=== PATIENT | female | born 1995 | race African-American/Black ===

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

== ENCOUNTER 2017-02-11 09:18 | Emergency (ER) | payer OTHER ==
[2017-02-11 11:00] LABS: ABSOLUTE BASOPHIL COUNT 0 /CUMM (0.0-0.2); ABSOLUTE EOSINOPHIL COUNT 0.2 /CUMM (0.0-0.7); ABSOLUTE GRANULOCYTE CT 10.2 /CUMM (1.4-6.5); ABSOLUTE LYMPH COUNT 0.8 /CUMM (1.2-3.4); ABSOLUTE MONOCYTE COUNT 0.8 /CUMM (0.10-0.60); BASOPHIL % 0.1 % (0.0-2.0); EOSINOPHIL % 1.6 % (0-5); GRANULOCYTE % 84.6 % (42.2-75.2); HEMATOCRIT 32.5 % (37-47); MEAN CORPUSCULAR HGB 29.5 PG (27.0-31.0); MEAN CORPUSCULAR HGB CONC 33.5 G/DL (33.0-37.0); MEAN CORPUSCULAR VOLUME 87.9 FL (81.0-99.0); MEAN PLATELET VOLUME 7.8 FL (7.4-10.4); PLATELET COUNT 405 /CUMM (130-400); RBC DISTRIBUTION WIDTH 15.6 % (11.5-14.5); WHITE BLOOD CELL COUNT 12.1 /CUMM (4.8-10.8)
--- NOTE | 2017-02-11 11:24 | ED GI/GU/ABDOMINAL COMPLAINT ---
History of Present Illness General Chief Complaint: General Adult Stated Complaint: LAUREN SICKLE CELL Source: patient, old records, EMS Exam Limitations: no limitations Vital Signs & Intake/Output Vital Signs & Intake/Output Vital Signs Date Time Temp Pulse Resp B/P B/P Pulse O2 O2 Flow FiO2 Mean Ox Delivery Rate 02/11 1123 97.2 88 16 128/80 98 Room Air 02/11 0920 96.0 85 16 118/78 99 Room Air Allergies Coded Allergies: NO KNOWN ALLERGIES (04/29/16) Triage Note: PT LAUREN FROM HOME WITH SICKLE CELL ATTACK. PT STATES IT WOKE HER UP OUT OF SLEEP THIS MORNING. REPORTS THAT SHE WAS RECENTLY ADMITTED TO THE HOSPITAL LAST WEEK AND D/C MONDAY FOR THE SAME. EMS REPORTS PT WAS VOMITING, ADMINISTERED 4MG ZOFRAN EN ROUTE, PT STATES NAUSEA IS BETTER AT THIS TIME. C/O PAIN TO BODY 04/23. Triage Nurses Notes Reviewed? yes ? n Is pt currently ? No HPI: Ms. Gorman PMH of sickle cell disease since childhood and H/O medical marijuana for her pain since the age of 20 Y/O brought to ED by EMS with CC of nausea, vomiting, pain in abdomen and both legs since last night. According to patient pain in abdomen and legs started gradually last night and it was 7/10 that increased to 9/10, achy, continuous , nonradiating, aggravated by movement and alleviated by lying still in bed on the side bending her legs close to belly. The abdominal pain is generalized. She also reports that she vomited everything she tried to drink, vomitus was brownish in color, nonbloody, and half container in amount. She also reports that she was admited to [facility] last Monday for the same compain and then patient decided to leave against the medical advise on . She also told that she had itching sensation when she was given morphine and dilaudid in [facility] and then she was given Benedryl. (RONALD ORANTES,IGNACIO) Reconcile Medications Diphenhydramine HCl 50 MG CAPSULE 1 CAP PO Q6-PRN PRN ITCHING (Reported) Diphenoxylate HCl/Atropine (Lomotil 2.5-0.025 MG Tablet) 2.5 MG-0.025 MG TABLET 1 TAB PO 4 TIMES/DAY diarrhea twenty...[id number] Hydromorphone HCl 8 MG TABLET 1-3 TAB PO Q3 PRN PAIN (Reported) Hydromorphone HCl (Dilaudid) 4 MG TABLET 1-2 TAB PO 4XDP PRN pain eight...[id number] Ibuprofen 600 MG TABLET 1 TAB PO Q6H PRN PAIN (Reported) With food Ondansetron (Zofran Odt) 4 MG TAB.RAPDIS 1 TAB SL TID PRN nausea Ondansetron HCl 8 MG TABLET 1 TAB PO Q6H PRN N/V (Reported) (SILVER ORANTES,NEERAJ Jimenez) Past History Travel History Traveled to [place] past 21 day No Medical History Blood Transfusion Hx: Yes Type of Reaction: Itching Any Pertinent Medical History? 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 No (IGNACIO CARDENAS MD) Review of Systems Review of Systems Constitutional: Reports: no symptoms. EENTM: Reports: no symptoms. Respiratory: Reports: no symptoms. Cardiovascular: Reports: no symptoms. GI: Reports: abdominal pain, nausea, vomiting. Genitourinary: Reports: no symptoms. Musculoskeletal: Reports: joint pain. Skin: Reports: no symptoms. Neurological/Psychological: Reports: no symptoms. (IGNACIO CARDENAS MD) Review of Systems Hematologic/Endocrine: Reports: no symptoms. Immunologic/Allergic: Reports: no symptoms. All Other Systems: Reviewed and Negative (NEERAJ SHEPPARD MD) Physical Exam Physical Exam General Appearance: mild distress Head: normal appearance Eyes: Bilateral: normal appearance, PERRL, EOMI, normal inspection. Ears, Nose, Throat, Mouth: hearing grossly normal Neck: normal inspection Respiratory: normal breath sounds Cardiovascular: regular rate/rhythm Gastrointestinal: normal bowel sounds Skin: intact, normal color, warm/dry Core Measures ACS in differential dx? No Severe Sepsis Present: No Septic Shock Present: No (IGNACIO CARDENAS MD) Physical Exam Back: normal inspection, normal range of motion, NO CVA TENDERNESS Extremities: normal range of motion Neurologic/Psych: no motor/sensory deficits, awake, alert, oriented x 3, normal gait, normal mood/affect (SILVER ORANTES,NEERAJ Jimenez) Progress Differential Diagnosis: appendicitis, biliary colic, cholecystitis, ectopic , gastritis, ischemic bowel, intrauterine , pancreatitis, peptic ulcer, threatened AB, UTI/pyelo Plan of Care: Orders Procedure Date/time Status Add-on Test (ER Only) 02/11 1120 Active HUMAN BETA HCG SCREEN 02/11 1050 Complete RETICULOCYTE COUNT 02/11 1022 Complete COMPREHENSIVE METABOLIC PANEL 02/11 1022 Complete CBC WITHOUT DIFFERENTIAL 02/11 1022 Complete Current Medications Sig/Justin Start time Last Medication Dose Stop Time Status Admin Hydromorphone HCl 2 MG ONCE PRN 02/11 1200 AC 02/11 (Dilaudid) 02/12 2000 1211 Laboratory Tests 02/11/17 1050: Anion Gap 12, Estimated GFR > 60, BUN/Creatinine Ratio 18.0, Glucose 87, Calcium 9.6, Total Bilirubin 1.6 H, AST 25, ALT 26, Alkaline Phosphatase 61, Total Protein 8.0, Albumin 4.5, Globulin 3.5, Albumin/Globulin Ratio 1.3, Total Beta HCG NEGATIVE, CBC w Diff MAN DIFF ORDERED, RBC 3.70 L, MCV 87.9, MCH 29.5, RDW 15.6 H, MPV 7.8, Gran % 84.6 H, Lymphocytes % 6.9 L, Monocytes % 6.8, Eosinophils % 1.6, Basophils % 0.1, Absolute Granulocytes 10.2 H, Segmented Neutrophils 78 H, Absolute Lymphocytes 0.8 L, Lymphocytes 10 L, Monocytes 10 H, Absolute Monocytes 0.8 H, Eosinophils 2, Absolute Eosinophils 0.2, Absolute Basophils 0, Nucleated RBCs 2 H, Platelet Estimate VERIFIED BY SMEAR, Polychromasia 2+, Poikilocytosis 2+, Anisocytosis 1+, Target Cells 2+, PUBS MCHC 33.5, Retic Count 7.10 H We will give patient IV fluids, IV pain meds and then reevaluate. (RONALD ORANTES,IGNACIO) Initial ED EKG: none Comments: I talked to the patient and she said that she is feeling comfortable although pain is still there but it's less severe and it's close to her base line. I told her that she can come back to ED if she doesn't feel well or the pain comes back and she agreed to it. (RONALD ORANTES,IGNACIO) Departure Departure Disposition: HOME OR SELF CARE Condition: Stable Clinical Impression Primary Impression: Sickle cell crisis Referrals: PATRICK ORANTES,GARTH Johnson (PCP/Family) Additional Instructions: Plenty of fluids, return to ED if symptoms worsen or having common cold or symptoms of infection or if any concers. Departure Forms: Customer Survey General Discharge Information (RONALD ORANTES,IGNACIO) Resident Co-Sign Statement Statement: ED Attending supervision documentation- [X] I saw and evaluated the patient. I have also reviewed all the pertinent lab results and diagnostic results. I agree with the findings and the plan of care as documented in the Resident's documentation. [X] I have reviewed the ED Record and agree with the Resident's documentation. [] Additions or exceptions (if any) to the Resident's note and plan are summarized below: [I personally seen and examined this patient. I read the above note and agree with what has been written. Patient presents with what she states is her usual sickle cell crisis. Pain is crampy and constant. The pain is severe. Pain has decreased after 3 doses of IV pain medication. Patient offered admission to however she wants to go home.] (SILVER ORANTES,NEERAJ Jimenez)
[2017-02-11 14:12] VITALS: BP 129/78
[2017-02-11] MEDS ORDERED: KRISTALOSE20 GM PO (14:12)
== END 2017-02-11 15:18 ==
LOC: ERH 09:18
PROVIDERS: Student in an Organized Health Care Education/Training Program
DX: D57.00 Hb-SS disease with crisis, unspecified (principal)
CPT/HCPCS: 96374; 96375; 96376; J1200

== ENCOUNTER 2017-02-16 21:57 | Inpatient (IN) | payer OTHER ==
[~2017-02-16] VITALS: Ht 162.6 cm; Wt 76.3 kg
[~2017-02-16 21:57] MED LIST changes: +KRISTALOSE20 GM PO
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
--- NOTE | 2017-02-16 22:34 | NUR ---
PT EVALUATED BY KHARI HALL.
--- NOTE | 2017-02-17 00:11 | NUR ---
IV ACCESSED BY ANEUDY BORGES ON LEFT CHEST PORT. IV NS INFUSING ORDERED. LABS SENT BY RN.
[2017-02-17 00:15] LABS: MEAN CORPUSCULAR HGB CONC 33.6 G/DL (33.0-37.0); MEAN CORPUSCULAR VOLUME 86.3 FL (81.0-99.0); PLATELET COUNT 341 /CUMM (130-400); WHITE BLOOD CELL COUNT 13.6 /CUMM (4.8-10.8)
--- NOTE | 2017-02-17 00:55 | NUR ---
PT REQUESTED FOR CHRONIC PAIN 03/23. MEDICATED WITH DILAUDID 4MG AND BENADRYL 50MG PO. PT STATING "ITS NOT GOING TOUCH ME" ADVISED PT TO TAKE WHAT HAS BEEN ORDERED FOR NOW AND WILL RE EVALUATE PAIN. PT IN AGREEMENT.
--- NOTE | 2017-02-17 01:00 | NUR ---
PT STATES "I WANT TO GO HOME, IM UNCOMFORTABLE. OR CAN I GO TO [place] WHERE MY DOCTORS ARE" MD NOTIFIED.
--- NOTE | 2017-02-17 01:20 | NUR ---
DR. DONOVAN AT BEDSIDE SPEAKING WITH THE PT AND FAMILY.
--- NOTE | 2017-02-17 01:32 | NUR ---
PT REQUESTED TO GET THE SPECIAL EFFECTS SPECIALIST VISITING CARD FROM THE [facility]. VALUABLE TAKEN OUT FROM ED SAFE. PT TOOK THE VISITING CARD OUT. VALUABLE BAG RESEALED AND PLACED IN ED SAFE. WITNESSED BY ANEUDY PATEL.
--- NOTE | 2017-02-17 01:52 | NUR ---
DR. SHEPPARD AT BEDSIDE SPEAKING WITH THE PT.
--- NOTE | 2017-02-17 01:55 | NUR ---
PAIN REMAINS UNCHANGED. CONTINUE C/O PAIN 03/23. IV NS FIRST BAG INFUSED. SECOND BAG INFUSING AT THIS TIME.
--- NOTE | 2017-02-17 02:04 | NUR ---
pt medicated with 50 mg benadryl and 2 mg dilaudid iv as ordered
--- NOTE | 2017-02-17 02:44 | NUR ---
PT CHATTING WITH THE SITTER. REPORTS "IM STILL IN PAIN" PAIN DOWN TO 7/10. PT C/O FEELING NAUSEATED. MD INFORMED.
--- NOTE | 2017-02-17 02:55 | NUR ---
HECTOR KULKARNI Nurse Note by: ROYER CABRERA I agree with the DIETARY SERVICES MANAGER findings/evaluation of this patient's condition. Entered by: ROYER CABRERA Date: 02/17/17 Time: 0255
--- NOTE | 2017-02-17 03:57 | NUR ---
SECOND LITER NS INFUSED. PT REPORTS HER PAIN IS NOW 8/10 AFTER 4 MG DILAUDID PO AND [address] SHEPPARD MADE AWARE
--- NOTE | 2017-02-17 04:17 | NUR ---
PT MEDICATED WITH ANOTHER 50 MG BENADRYL IV AND ANOTHER 2 MG DILAUDID IV ORDERED
--- NOTE | 2017-02-17 06:15 | NUR ---
AWOKE PATIENT FROM SOUND SLEEP TO OBTAIN VS. PATIENT REPORTING 6/10 SICKLE CELL PAIN, PATIENT DENIES OTHER COMPLAINTS. AMBULATORY TO AND FROM BATHROOM W/ STABLE GAIT NOTED.
--- NOTE | 2017-02-17 06:34 | NUR ---
PATIENT REPORTING CURRENT PAIN 01/21 D/T SICKLE CELL, PRN ORDER IS Q6H, LAST MEDICATED AT 0054, CANNOT MEDICATE AGAIN UNTIL 0654. INFORMED WAITING.
--- NOTE | 2017-02-17 06:55 | NUR ---
PATIENT DUE FOR PRN DILAUDID, PATIENT NOTED TO BE SLEEPING W/ REGULAR RESPIRATIONS NOTED. SITTER AWARE TO INFORM RN WHEN PATIENT WAKES.
--- NOTE | 2017-02-17 07:22 | NUR ---
PT LAYING ON STRETCHER WITH EYES CLOSED AT THIS TIME, REQUESTING PAIN MEDIACTION, STATES PAIN IS A 8/10 AT THIS TIME. PT MEDICATED WITH PRN ORDER WITH 4MG PO DILAUDID AT THIS TIME. SITTER REMAINS PRESENT AT THIS TIME.
--- NOTE | 2017-02-17 08:04 | NUR ---
PT AWAKE AND ALERT AND CALM AND COPERATIVE AT THIS TIME, PT PROVIDED WITH FOOD TRAY BUT STTAES THAT SHE DOES NOT USUALLY EAT BREAKFAST DAILY AND DOES NOT FEEL LIKE EATING AT THIS TIME.
--- NOTE | 2017-02-17 08:50 | NUR ---
PT AWARE THAT HER GRANDMOTHER CALLED AND THAT SHE WILL BE HERE IN ABOUT 20 MINUTES
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
--- NOTE | 2017-02-17 10:18 | NUR ---
PT ASKING FOR "MORE PAIN MEDS", DR GAO AWARE.
--- NOTE | 2017-02-17 10:22 | NUR ---
CRISIS AT BEDSIDE FOR EVAL
--- NOTE | 2017-02-17 10:30 | NUR ---
PT CRYING IN HALLWAY STATING "I HAVE SICKLE CELL AND IF I DONT GET MEDICATED I AM LEAVING AND GOING TO [place]" EXPLAINED PT SHE RECIEVED 4MG PO DILAUDID THIS AM AND SHE IS NOT DUE FOR MORE MEDICATION UNTIL 1330. TO PATYDE TO SPEAK WITH PT
--- NOTE | 2017-02-17 10:42 | NUR ---
PT MEDICATED WITH DILAIDID AND BENADRYL PER ORDER AT THIS TIME.
--- NOTE | 2017-02-17 12:00 | NUR ---
ASSUMED CARE OF THIS PT. WHEN THIS RN INTRODUCED SELF TO PT, PT REPORTED THAT SHE WAS STILL IN PAIN, NOW 03/23. WILL MAKE DR GAO AWARE. SITTER AT BEDSIDE.
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
--- NOTE | 2017-02-17 12:35 | NUR ---
OFFERRED PT DILAUDID 4MG PO FOR HER PAIN AND PT REFUSED, STATING THAT IT DOESN'T HELP RELIEVE HER PAIN. PT STATES THAT WHEN HER PAIN IS TOO MUCH TO MANAGE AT HOME BY TAKING WITHER 4, 8 OR 12MG DILAUDUD SHE COMES TO THE ER AND FEELS LIKE WE ARE NOT TAKING CARE OF HER PAIN. THIS RN SPOKE WITH DR GAO WHO SAID PT IS TO STAY ON HER PRN REGIMEN AT THIS TIME. SITTER AT BEDSIDE.
--- NOTE | 2017-02-17 14:13 | NUR ---
PT STATED TO CRISIS THAT SHE IS UNABLE TO AMBULATE DUE TO HER PAIN, PT NOTED BY MULTIPLE STAFFMEMBERS AMBULATING BACK AND FORTH TO BATHROOM AND PHONE. PT ALSO AMBULATED DOWN [place] TO ROOM 16 TO HAVE EKG DONE, PT NOTED TO AMBULATE WITH STEADY GAIT . PT SITTING UP ON STRETCHER EATING AND CHATTING WITH HER GRANDMOTHER.
--- NOTE | 2017-02-17 15:01 | NUR ---
PER PT REQUEST, PT ASKED THIS RN TO OBTAIN A WHEELCHAIR FOR PT TO GO TO RESTROOM. THIS RN WHEELED PT TO RESTROOM WITH GRANDMOTHER IN ATTENDANCE. GRANDMOTHER WHEELED PT BACK TO STRETCHER. PT STATES "MY FEET FEEL LIKE I AM WALKING ON PINS AND NEEDLES". PT WINCED IN PAIN WHEN TRANSFERRING TO AND FROM BED/WHEELCHAIR. SITTER AT BEDSIDE.
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
--- NOTE | 2017-02-17 16:08 | NUR ---
PT MEDICATED WITH K-DUR 60MG FOR REPLACEMENT. PT TO MEET WITH ENEDINA CHAVEZ IN CONSULTATION ROOM. THIS RN OBTAINED A WHEELCHAIR FOR PT.
--- NOTE | 2017-02-17 17:00 | NUR ---
PT MEDICATED WITH MS CONTIN 15MG PO PER EMAR FOR PAIN 04/23. SITTER AT BEDSIDE.
--- NOTE | 2017-02-17 17:40 | NUR ---
PER DR GAO, PT REPORTS PAIN IS WORSE THAN SHE ORIGINALLY REPORTED AND PT GIVEN AN ADDITIONAL 15MG MS CONTIN. PT'S GRANDMOTHER AT BEDSIDE. SITTER AT BEDSIDE.
--- NOTE | 2017-02-17 18:04 | NUR ---
CALLED [facility] AND SPOKE WITH NICKI, WHO STATED SHE IS IN THE MIDDLW OF THE LAST ADMISSION AND WOULD CALL WHEN SHE WAS READY TO TAKE PATIENT.
--- NOTE | 2017-02-17 19:05 | NUR ---
CALLED REPORT TO NICKI ON [facility]. TRANSPORT BOOKED FOR 193
--- NOTE | 2017-02-17 19:20 | NUR ---
PT VISITING WITH GRANDMOTHER AND ANOTHER FAMILY MEMBER PRIOR TO TRANSFER DOWN TO [facility] AT 1930. PT CALM AND COOPERATIVE. SITTER AT BEDSIDE.
[2017-02-17 20:03] VITALS: BP 148/89
[2017-02-17] MEDS ORDERED: MORPHINE SULFAT15 M4 PO (22:57)
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
--- NOTE | 2017-02-18 06:56 | NUR ---
PATIENT SLEPT ALL NIGHT, RECIEVED PRN MORPHINE 45MG AT AT 0622.
[2017-02-18 08:17] VITALS: BP 139/82
[2017-02-18 12:12] VITALS: BP 144/73
--- NOTE | 2017-02-18 14:33 | NUR ---
PT IS STABLE WITH BRIGHT, FULL RANGE OF AFFECT. PT IS CURRENTLY IN A WHEEL CHAIR DUE TO PAIN EXACCERBATED BY HER SICKLE CELL CRISIS. PT IS VERY PLEASANT, COMPLIANT AND COOPERATIVE. PT HAS BEEN ATTENDINGR GROUPS ALL AM. PT WENT TO [employer] AND STATED THAT SHE WISHES TO REPAIR THE RELATIONSHIP SHE HAS WITH HER MOTHER AND THAT HER IDEA OF A "LIFE WORTH LIVING" WOULD BE "A LIFE WITHOUT SICKLE CELL". PT IS POSITIVE AND BRIGHT. VS ARE STABLE AND DENIES ANY SI/HI TO THIS MHW.
--- NOTE | 2017-02-18 15:15 | History & Physical ---
General Information and HPI MD Statement: I have seen and personally examined HECTOR KULKARNI and documented this H&P. The patient is a 21 year old F who presented with a patient stated chief complaint of DEPRESSION AND SUICIDAL IDEATION Source of Information: patient, old records Exam Limitations: no limitations History of Present Illness: 21 O/F with pmh of sickle cell disease comes with depression and suicidal ideation. She does complaint of generalised pains controlled on PO pain meds. Patient is denies any chest pain, fever no tachycardia, coperative now, on wheel chair. review of symtpoms negative Allergies/Medications Allergies: Coded Allergies: NO KNOWN ALLERGIES (04/29/16) Home Med list Diphenhydramine HCl 50 MG CAPSULE 1 CAP PO Q6-PRN PRN ITCHING (Reported) Ibuprofen 600 MG TABLET 1 TAB PO Q6H PRN PAIN (Reported) With food Lactulose (Kristalose) 20 GRAM PACKET 1 PACKET PO DAILY NEEDED CONSTIPATION (Reported) REPEAT NEEDEDE Morphine Sulfate 15 MG TABLET 1-3 TAB PO Q3H PRN PAIN (Reported) Ondansetron HCl 8 MG TABLET 1 TAB PO Q6H PRN N/V (Reported) Compliance With Home Meds: FAIR Past History Travel History Traveled to [place] past 21 day No Medical History Neurological: NONE EENT: NONE Cardiovascular: NONE Respiratory: NONE Gastrointestinal: MED INDUCED NAUSEA Hepatic: GALL STONES Renal: NONE Musculoskeletal: CHRONIC SICKLE CELL PAIN "ALL OVER MY BODY" Psychiatric: depression, CLAUSTROPHOBIA Endocrine: NONE Blood Disorders: sickle cell disease Cancer(s): NONE 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 Home Who Do You Live With? grandparents Services at Home: None Primary Language: Upper Sorbian Functional Ability ADLs Independent: dressing, eating, toileting, bathing. Ambulation: independent, cane, walker, non-ambulatory IADLs Independent: shopping, housework, finances, food prep, telephone, transportation , medication admin. Employment History Employment Part-time at [employer] Review of Systems Review of Systems Constitutional: Denies: no symptoms, see HPI. EENTM: Denies: no symptoms, see HPI, blurred vision. Cardiovascular: Denies: no symptoms, see HPI, chest pain. Respiratory: Denies: no symptoms, see HPI, cough, hemoptysis. GI: Denies: no symptoms, see HPI, abdominal pain, bloating. Genitourinary: Denies: no symptoms, see HPI, discharge. Musculoskeletal: Denies: no symptoms, see HPI, back pain. Skin: Denies: no symptoms, see HPI, cysts. Neurological/Psychological: Denies: no symptoms, see HPI, anxiety. Hematologic/Endocrine: Denies: no symptoms, see HPI, bruising. Immunologic/Allergic: Denies: no symptoms, splenectomy. All Other Systems: Reviewed and Negative Exam & Diagnostic Data Last 24 Hrs of Vital Signs/I&O Vital Signs Date Time Temp Pulse Resp B/P B/P Pulse O2 O2 Flow FiO2 Mean Ox Delivery Rate 02/18 1212 102 144/73 02/18 0817 96.8 92 139/82 02/17 2003 97.1 92 148/89 02/17 1801 96.8 102 16 147/92 100 Room Air Intake & Output 02/18 1600 02/18 0800 02/18 0000 Intake Total Output Total Balance Patient 76.26 kg Weight Physical Exam General Appearance Alert, Oriented X3, Cooperative, No Acute Distress Skin No Rashes, No Breakdown HEENT Atraumatic, PERRLA, EOMI Neck Supple, No JVD, No thryomegaly Cardiovascular Regular Rate, Normal S1, Normal S2 Lungs Clear to Auscultation, Normal Air Movement Abdomen Normal Bowel Sounds, Soft, No Tenderness Neurological Exam Findings: Normal Gait, Normal Speech, Strength at 5/5 X4 Ext, Normal Tone, Sensation Intact, Cranial Nerves 3-12 NL Cranial Nerves II through XII: intact Extremities No Clubbing, No Cyanosis Last 24 Hrs of Labs/Aaron: Laboratory Tests 02/18/17 0615: Anion Gap 12 02/17/17 1820: Anion Gap 12, Estimated GFR > 60, BUN/Creatinine Ratio 8.3 Assessment/Plan As Ranked By This Provider Problem List: 1. Sickle cell disease 2. Suicide ideation 3. Chronic pain Miscellaneous Miscellaneous Documentation Attending Case Discussed With: VIC ORANTES,RAMON Primary Care Physician: GARTH NGUYEN MD Patient sees these Specialists none Level of Patient Care: PASTOR Ayers MD Review Statement Attending Statement Attending MD Statement: examined this patient, discuss w/resident/PA/MEDICINE TEACHER, agreed w/resident/PA/MEDICINE TEACHER, discussed with family, reviewed EMR data (avail), discussed with nursing, discussed with case mgmt, reviewed images, amended to note Attending Assessment/Plan: 21 o/f with h/o sickle cell disease comes with depression and suicidal ideations [facility]. Patient pain controlled by PO pain meds, encourage PO intake. follow pysch.
[2017-02-18 15:58] VITALS: BP 125/88
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
--- NOTE | 2017-02-19 06:01 | NUR ---
PT RECEIVED SEVERAL VISITORS. TOWARDS THE END OF VISITATION, PATIENT HAD WHAT SHE DESCRIBED SIGNIFICANT PAIN FROM SICKEL CELL ANEMIA. THE PATIENT WAS GIVEN MORPHINE PRN. DR SUNSHINE, THE HOSPITALIST, WAS CALLED REGARDING THE PATIENT'S STATUS. THE PT SLEPT FOR ONE HOUR, THEN SHE WAS UP AND CRYING REGARDING THE PAIN. PT THEN SPOKE C HER ROOMMATE FROM 0000 TO 0100. SHE SLEPT AFTERWARDS. PT SAYS SHE WOULD LIKE TO DC SO "I CAN GET BETTER TREATMENT FOR THE SICKLE CELL ANEMIA".
--- NOTE | 2017-02-19 12:38 | NUR ---
PT HAS BEEN ISOLATIVE AND IN BED ALL AM. PT JUST REECNTLY REQUESTED THAT SOMEONE "WHEEL ME TO THE BATHROOM BECAUSE IT HURTS TOO MUCH TO WHEEL MYSLEF". PT DOES NOT APPEAR TO BE IN ANY ACUTE DISTRESS, NOT CRYING, VERY CONSTRICTED AFFECT. PT'S MOOD IS STABLE. PT IS CURRENTLY SITTING NEXT TO THE PHONE NOT MOVING BECAUSE SHE CANNOT WHEEL HER WHEELCHAIR HERSELF DUR TO PAIN. T WAS ENCOURAGED BY RN TO GO TAKE PAIN MEDICATION AND PT RESPONDED WITH "OK" AND REMAINED SITTING NEXT TO THE PHONE. VS ARE STABLE, DENIES ANY SI/HI TO THIS MHW.
[2017-02-19 12:48] VITALS: BP 139/78
--- NOTE | 2017-02-19 12:59 | NUR ---
PT APPEARED TO SLEEP WELL UNTIL ABOUT NOON TODAY, AWOKE AND USED THE BATHROOM AND CALMLY INFORMED STAFF OF PAIN, INFORMED TO SEE MEDICATION RN FOR MEDICATION HOWEVER, ELECTED TO USE THE PHONE FIRST AND STAY POSITIONED THERE FOR 15-30 MINUTES SITTING IN HERE WHEELCHAIR, QUIET, NO OTHER COMPLAINTS, ISSUES OR DISTRESS NOTED & STABLE VITAL SIGNS. THIS RN PROACTIVELY APPROACHED THE PT & ADVISED TO SEE THE MEDICATION NURSE FOR PRN PAIN MEDS IF NEEDED AND PT TRANQUILLY ACKNOWLEDGED THIS. MED RN CHECKED IN WITH PT WELL AND OFFERED TO BRING OVER PRN MEDICATION WHICH PT OBLIGED. IMMEDIATELY UPON RECEIVING MEDICATIONS PT WHEELED SELF INTO THE LOUNGE WITH PEERS AND CURRENTLY CALMLY WATCHING TV AND CONVERSING WITH PEERS.
[2017-02-19 15:43] VITALS: BP 123/69
--- NOTE | 2017-02-19 15:54 | NUR ---
PT WAS VISITED BY GRANDMOTHER AND ANOTHER VISITOR AND WHEN THEY WERE GETTING READY TO LEAVE (IT WAS THE GRANDMOTHER'S BIRTHDAY TODAY AND WANTED TO REASONABLY RETURN HOME WHICH IS TWO BLOCKS AWAY, FOR A SHORT TIME AND THEN WOULD COME BACK); PT BEGAN CRYING AND WAILING AND FLIP FLOP SLID OFF FOOT, ATTEMPTED TO STRETCH AND EXTEND LEG UNDER THE TABLE TO RETRIEVE AND SLIP SANDAL BACK ON FOOT, SHE WAS TRYING (PER GRANDMOTHER) SLOWLY & GENTLY GUIDED/MOVED SELF LOWER TO FLOOR AND WAS SITTING DOWN; @ THAT TIME THIS RN SAW THE PT SITTING ON FLOOR IN FRONT OF WHEELCHAIR CRYING AND WENT TO ASSIST. PT REFUSED TO MOVE AND APPEARED IRRITATED THAT FAMILY WAS LEAVING AND "NOT LISTENING" TO HER COMPLAINTS. FAMILY AND THIS RN CALMY & SENSIBLY REASONED, ACKNOWLEDGED PT TO NO AVAIL. PT CONTINUED TO GROW IRRITABLE AND AGITATED WITH FAMILY, THIS RN VERBALLY DE-ESCALATED & PT PUT SELF BACK IN THE WHEELCHAIR & VISITORS LEFT AND REPORTED WOULD COME BACK SHORTLY AND GRANDMOTHER STATED TO THIS EMERGENCY MANAGEMENT SYSTEM DIRECTOR "I'M SURE SHE'S IN PAIN BUT THIS IS ALSO PSYCHOSOMATIC, YA KNOW?". VISITORS LEFT AND PT RETURNED TO ROOM, GIVEN FLUIDS, REPOSITIONED FOR COMFORT AND PROVIDED WITH COLORING MATERIALS AND PT APOLOGIZED AND REPORTED "LOVING IT HERE" JUST IN PAIN AND WANTS TO BE HEARD, EMAPTHY AND CONCERNS VALIDATED. DR. CHAKRABORTY CONTACTED RE: ABOVE AND REPORTED WOULD BE ON UNIT MOMENTARILY TO ASSESS. WHEN DR. CHAKRABORTY ARRIVED SHORTLY AFTER, THIS RN JOINED DOCTOR IN THE ROOM TO DISCUSS PLAN OF CARE WITH PT AND HOW SHE WAS FEELING ETC. AFTER OUR MEETING DR. CHAKRABORTY CONSULTED DR. HO AND THEN ON-CALL HOSPITALIST DR. RASCON WELL. MORPHINE SULFATE IR 45MG WAS DISPENSED TO PT @ 1300 AND 1600 PER ORDER AND PT LESS TENSE, UPSET, LABILE AND ON UNIT JOKING WITH STAFF AND PEERS, CALM, COOPERATIVE AND APPEARED TO BE EXPERIENCING PAIN AT A TOLERABLE LEVEL PER OBJECTIVE AND RECENT BEHAVIOR. DR. HIGGINBOTHAM INFORMED THIS RN AFTER SPEAKING WITH DR. RASCON A CBC PANEL IS PLACED AND NO FURTHER ORDERS AT THIS TIME. ALSO, PT WAS EDUCATED ON THE FACT THAT A SUBSTANTIAL TIME HAD ELAPSED (CLOSE TO 12 HOURS) IN BETWEEN REQUESTING PAIN PRNS WITH LIMITED FLUID INTAKE; OTHER APPOPRIATE PAIN MANAGEMENT/EXACERBATION MANAGEMENT TECHNIQUES WERE DISCUSSED & PT VERBALIZED UNDERSTANDING AND AGREED. WATER PITCHER PROVIDED ALONG WITH THE NEXT ALLOWABLE TIME OF MORPHINE (Q3 HOURS) AND PT VERBALIZED APPRECIATION AND THANKED STAFF FOR KINDNESS, PATIENCE AND UNDERSTANDING. FLOOR RN [facility] FROM LEFT CHEST WALL PORT AND DELIVERED TO LAB. PT WAS CONVERSING AND LAUGHING WITH RN DRAWING LABS AND THIS EMERGENCY MANAGEMENT SYSTEM DIRECTOR, NO ACUTE DISTRESS NOTED OR REPORTED AND AT THIS TIME IS ENGAGING WITH PEERS APPROPRIATELY IN THE KITCHEN AND CONTINUING TO COLOR CALMLY, IN CONTROL WITH NO COMPLAINTS.
--- NOTE | 2017-02-19 15:56 | CP SOUTH PROGRESS NOTE PSYCH ---
See Addendum Psych (Inpt) Progress Note Progress Note Progress Note: SUBJECTIVE: Pt reported 10/10 sickle cell pain intermittently throughout the day today, however would then seem well-engaged with peers and family, coloring, reading. Pt reported that she wanted to "sign myself out and go to [facility] for treatment...you arent doing anything for my pain." Pt denied SI/HI/AVH/SIB, stated she was eating ok with mild nausea not requring zofran. Pt stated she wanted to have family meeting with grandmother. OBJECTIVE: Per nursing, pt had several visitors last night, crying and complaining of pain with family present. Dr Sabillon was notified. Pt was up throughout the night crying with pain complaints. Pt took high dose (45 mg) morphine 4 times over last 24 hours (not maximizing total available of 8 doses). MEDS: Current Medications Sig/Justin Start time Last Medication Dose Stop Time Status Admin Acetaminophen 650 MG Q6P PRN 02/17 1545 AC (Tylenol) Al Hydroxide/Mg 30 ML Q4-6 PRN PRN 02/17 1545 AC Hydroxide (Maalox Plus) Diphenhydramine HCl 50 MG Q6-PRN PRN 02/16 2330 AC 02/18 (Benadryl) 2335 Gabapentin 300 MG Q6P PRN 02/17 1545 AC (Neurontin) Lactulose 20 GM Q12P PRN 02/18 1730 AC (Enulose 20GM/30ML) Lorazepam 1 MG Q4P PRN 02/19 0015 AC (Ativan) Magnesium Hydroxide 30 ML AT BEDTIME PRN 02/17 1545 AC (Milk Of Magnesia) Morphine Sulfate 15 MG Q3P PRN 02/17 1700 AC 02/17 (MSIR) 1740 Morphine Sulfate 30 MG Q3P PRN 02/17 1700 AC 02/18 (MSIR) 2042 Morphine Sulfate 45 MG Q3P PRN 02/17 1700 AC 02/19 (MSIR) 1258 Ondansetron HCl 4 MG Q6P PRN 02/18 1730 AC (Zofran) Trazodone HCl 50 MG AT BEDTIME NEED.. 02/17 1545 AC 02/18 (Desyrel) 2335 VITALS: Vital Signs Date Time Temp Pulse Resp B/P B/P Pulse O2 O2 Flow FiO2 Mean Ox Delivery Rate 02/19 1543 108 123/69 02/19 1248 98.8 98 139/78 02/18 1558 108 125/88 LABS: CBC via port pending to eval for sickle cell hemolysis if present per Dr Nguyen. MSE: GEN: In bed, sleeping lightly, coloring books on lap, dressed in same clothes as yesterday, cooperative, NAD. SPEECH: moderately pressured, nml volume, fluent MOTOR: no tics, tremor, stereotypy or abnormal movements MOOD: "Evette upset because I am in pain" AFFECT: calm, incongruent, good range, nonlabile, well-related TP: perseverative on pain TC: denies SI/HI/AVH,SIB, no apparent delusions, paranoia, grandiosity COG: no apparent deficits in memory, attention, concentration J/I: fair/poor A&P: 21 yo SAAF with depression and sickle cell anemia presening via EMS for SI over text message. At this time, pt denies SI/HI/AVH/SIB at all, but with increased pain complaints today that are incongurent with behavior and seem to be reactive to family visits. Case discussed with Dr Mars and Dr Nguyen, will continue to treat on CPS with Medicine following. -q15 min checks, vs qid -cont home meds, SC pain/nausea meds -Medicine involvement for sickle cell mgmt, consider management on [facility] if acute exacerabation -f/u CBC to monitor for hemolysis -encourage po intake -may use wheelchair on unit -monitor left chest port for ssx infection, c/d/i now -f/u DCF as indicated -collateral as needed -rest of plan per primary team
[2017-02-19 16:43] LABS: ABSOLUTE BASOPHIL COUNT 0.2 /CUMM (0.0-0.2); ABSOLUTE EOSINOPHIL COUNT 0.2 /CUMM (0.0-0.7); ABSOLUTE GRANULOCYTE CT 5.6 /CUMM (1.4-6.5); ABSOLUTE LYMPH COUNT 2.3 /CUMM (1.2-3.4); BASOPHIL % 1.8 % (0.0-2.0); EOSINOPHIL % 1.8 % (0-5); GRANULOCYTE % 60.3 % (42.2-75.2); HEMATOCRIT 36.2 % (37-47); MEAN CORPUSCULAR HGB 28.9 PG (27.0-31.0); MEAN CORPUSCULAR HGB CONC 32.9 G/DL (33.0-37.0); MEAN PLATELET VOLUME 8.4 FL (7.4-10.4); PLATELET COUNT 378 /CUMM (130-400); RBC DISTRIBUTION WIDTH 15.6 % (11.5-14.5); RED BLOOD CELL CT 4.12 /CUMM (4.20-5.40); WHITE BLOOD CELL COUNT 9.3 /CUMM (4.8-10.8)
[2017-02-19 20:31] VITALS: BP 116/42
--- NOTE | 2017-02-19 23:57 | NUR ---
PREOCCUPIED WITH HER PHYICAL STATUS AND WAS INTENSE WITH HER GRANDMOTHER VISITING THREATENING TO CALL 911 OR A TAXI PROPRIETOR. TALKED AT LENGTH HER APPROACH TO GETTING ASSISTANCE FOR HERSELF. SEEN BY HOD WITH HER GRANDMOTHER PRESENT AND IT WAS VERY EFFECTIVE. PT SPOKE OF THE MEDICAL M.J SHE USES FOR SLEEP AND PAIN CONTROL. COOPERATIVE AND VISIBLE IN THE COMMUNITY.
--- NOTE | 2017-02-20 04:59 | NUR ---
SLEPT WELL OVERNIGHT WITH NO COMPLAINTS OFFERED. AWAKE AT 0315 MEDICATED WITH PRN PAIN MED. RETURNED TO BED WITHOUT PROBLEM OR COMPLAINT.
--- NOTE | 2017-02-20 05:16 | Event Note ---
Event Note Event Note: I was called to talk to patient and her grandmother. Patient states that she has sickle cell crisis. "I need IV pain medications, I need assistance to go to bathroom, I cannot get up from wheelchair" Upon further questioning, she complains of pain all over. She called her communications clerk at [facility], who suggested that patient should get more pain medications, if she thinks that she is in crisis. I reviewed labs with them, suggesting that she does not have drop in H and H, vitals appear stable. Patient persists on getting more pain medications. I had discussion with grandmother that we would try to increased by mouth pain medications on psychiatry floor and try to reassess in morning regarding medical admission Spaced out 45 mg of morphine when necessary every 4 hours for severe pain and 15 mg of morphine every 2 hours intermittently for breakthrough pain. Patient agrees with this plan for now, encouraged oral hydration We will get a.m. labs to reassess.
[2017-02-20 08:41] VITALS: BP 149/89
--- NOTE | 2017-02-20 11:08 | SOCIAL WORKER PROG NOTE PSYCH ---
Social Work Progress Note Progress Note 10:40am This ticket writer met with patient. Pt discussed events leading to current inpatient admission, specifically regarding her suicide threat, which she is denying as an actual threat: "I wasn't going to kill myself." Pt stated that she is currently suffering from physical pain related to Sickle Cell and does not find the medication to be helpful in managing the pain. Pt agreed to sign a SAMMI for her microbiology laboratory manager as well as her mother and grandmother. She was willing to schedule a family meeting with her mother and grandmother. Pt denied SI/HI/AH/VH.
--- NOTE | 2017-02-20 13:50 | NUR ---
PT HAS BEEN WITHDRAWN AND ISOLATIVE IN ROOM, SLEEPING MUCH OF SHIFT. PT DENIES SI AT THIS TIME, C/O CHRONIC PAIN. PT IS USING WHEELCHAIR INDEPENDENTLY. PT HAS BEEN PRESENT ON UNIT FOR 0800 VITALS AND BREAKFAST. PT HAS MINIMAL INTERACTION WITH OTHERS. PT HAS REFUSED GROUPS.VITALS ARE STABLE, APPETITE IS FAIR.
--- NOTE | 2017-02-20 15:07 | CP SOUTH PROGRESS NOTE PSYCH ---
Psych (Inpt) Progress Note Progress Note Include the following elements, when applicable: Involvement in the active treatment of the patient with behavioral observations of the patient and the patient's response to the treatment. Review of the ongoing treatment process in the context of the treatment plan. Indication of how multi-disciplinary staff members are carrying out the treatment plan. Plans for future interventions and recommendations for revision of the treatment plan. Liaison with other physicians/providers. Progress Note: Medication list reviewed. Dr. Rao's notes reviewed. Case and treatment plan discussed in team meeting. Staff reports that the patient frequently complains of pain. Wanted admission to medical floor. Refused blood draw this morning. Patient seen at 2:14 PM. She was resting in bed. She reports she wrote the suicide text to see if her mother cared, because she believes her mother just cares about mother's boyfriend of 7 years. Reports mother has not visited the patient here but maternal grandparents have visited. Patient denies having taken an overdose prior to admission. Patient reports she is just in a lot of pain, stating she has a severe crisis and it hurts, particularly whenever she bends both legs. Reports she has pain in her arms, back, chest and her sides hurt. She would prefer to be on IV pain medications. Reports the pain medication she is receiving here is her baseline medication that she takes at home. She is afraid of having a stroke. Does not want an antidepressant. Affect is calm but a little upset. States she is not really sad right now and rates sad mood 0/10. Reports pain is 10/10. Reports anxiety is 0/10. She feels hopeless and helpless about her mother. Denies feeling worthless or guilty. Denies active and passive suicidal ideation. Denies homicidal ideation. Denies auditory and visual hallucinations. Denies paranoid ideation and magical bradshaw. Oriented 3. Reports sleep is okay. Reports appetite is low because of pain. Reports energy is okay. IMPRESSION: Slow progress. Continue present treatment plan. A family meeting will be important. Anticipate possible discharge tomorrow if the patient continues to maintain safety, there has been a successful family meeting, and follow up has been arranged. I asked nursing staff to contact hospitalist for additional pain management.
--- NOTE | 2017-02-20 16:47 | Event Note ---
Event Note Event Note: I was called by the Inpatient Psychiatry service requesting evaluation of the patient. Patient reported ongoing pain despite adjustments to her pain medications bed last night. She was insistent on having pain medication intravenously. Clinical down to evaluate her she was sitting comfortably in the wheelchair talking on the phone. She had declined to have blood work drawn earlier this morning. Review of her records show several hospitalizations in 2016 for sickle cell crisis. She has had several emergency room visits this year as well however she has been transferred to [facility] for management by her oyster shucker. Patient reports that she was in conversation today with her oyster shucker regarding her ongoing pain. Vital Signs Date Time Temp Pulse Resp B/P B/P Pulse O2 O2 Flow FiO2 Mean Ox Delivery Rate 02/20 0841 96.9 84 149/89 02/19 2031 98.0 108 116/42 Gen. appearance: Young lady, not in any acute distress Heart: S1-S2 regular Lungs: Clear to auscultation bilaterally Abdomen: Soft, nontender with normal bowel sounds Extremities: No pedal edema. She had no tenderness of her digits. Skin intact with no rashes. I did have a conversation with her oyster shucker at [facility] Dr. Stevan Mercado today. I did describe her ongoing complaints despite an aggressive pain regimen orally. His recommendation was to increase her MSIR to 45 mg orally every 3 hours from every 4 hours and to reevaluate the patient overnight. He states that if she is still in pain tomorrow he will take over her management. The inpatient psychiatric service here at [place] has stated that patient will be discharged tomorrow morning. Recommendations: -Her MSIR has been adjusted to 45 mg orally every 3 hours. She still has her breakthrough medications in place. -If pain persists tomorrow follow-up with her oyster shucker Dr. Stevan Mercado regarding further care at [facility] per his recommendations. -Please ensure that patient receives her bowel regimen to prevent opioid-induced constipation. She has milk of magnesia and lactulose ordered but has not received a dose. -Plan of care discussed with the inpatient psychiatric nursing staff and with Sachin Mars MD.
--- NOTE | 2017-02-20 18:24 | NUR ---
PT IS CALM, COOPERATIVE WITH STAFF AND PEERS, AND COMPLIANT WITH UNIT RULES. OFTEN IN [place], INTERACTING WELL WITH OTHERS. MOOD IS STABLE, AFFECT APPEARS EUTHYMIC TO FULL RANGE, COMMUNICATION IS ORGANIZED AND APPEARS NORMAL IN ALL RESPECTS, AND APPETITE IS NORMAL. PT DENIES SI AT THIS TIME.
[2017-02-20 19:51] VITALS: BP 135/76
--- NOTE | 2017-02-21 07:29 | NUR ---
PT WITH NO SICKLE CELL CRISIS. PT QUIET, SUBDUED, ATTENDED GROUPS, AND SLEPT THRU THE NIGHT.
--- NOTE | 2017-02-21 10:38 | Patient Discharge Instructions ---
Psych Discharge Inst General Discharge Information Reason for Admission: Suicidal text message. Psy Discharge Primary Diag+ Unspecified depression Psy Discharge Secondary Diag+ Sickle cell anemia Pain from sickle cell an. Hypokalemia (resolved) Hx gallstones Summary Tests/Major Procedures Potassium was low at 3.3 but normalized to 4.6 with repletion. Total protein high at 8.4. TSH normal. RBC low at 4.12, HgB low at 11.9, HCT low at 36.2. Urine negative. Urine drug screen + for opiates/morphine and cannabis. Studies Pending at [place]: None. Patient Instructions Contact Information Your Psychiatrist on [facility] was VIC ORANTES,RAMON * If you are experiencing an emergency related to this hospitalization, please call [phone] to contact the treating psychiatrist or the psychiatrist-on- call. * To Request a copy of your medical records, please contact the Medical Records Department at [phone]. * To request results of studies pending at the time of discharge, please call [phone]. * Continue your Medications until directed to stop by your Healthcare provider. General Medication Information Please continue to take your new medications and your continued home medications , unless otherwise indicated on your discharge medication list, or unless directed by your MD or ADOLESCENT SPECIALIST to stop them. Special Instructions: Per Dr. Stevan Mercado' advice, please present to the [place] [facility] for evaluation of sickle cell disease/pain. Please see PCP to review borderline EKG (copy provided to patient upon discharge ). Advance Directives Does the Patient have Medical Advance Directives No/Refused further info Does Pt have Psychiatric Advance Directives? No/Refused further info Does Patient have a Designated Surrogate Decision Maker: No Information About Psychiatric Advance Directives Provided? Refused Discharge Plan Post Hospital Treatment Plan: [facility] IOP intake 02/22/17 9:30 a.m.
--- NOTE | 2017-02-21 10:45 | NUR ---
PT IS TENTATIVELY SCHEDULED FOR DISCHARGE TODAY. SHE IS REQUESTING TO BE DISCHARGED SO SHE CAN GO TO HER OWN DOCTOR FOR TREATMENT OF HER SICKLE CELL ANEMIA. SHE IS NOT INVOLVED IN TREATMENT HERE. REFUSING ALL GROUPS AND STAYING IN BED MOST OF THE DAY. SHE DENIES ANY THOUGHTS OF SUICIDE OR SELF HARM AT THIS TIME
--- NOTE | 2017-02-21 11:56 | SOCIAL WORKER PROG NOTE PSYCH ---
Social Work Progress Note Progress Note 11:10am This handbook writer met with pt and her grandmother, Steph Gorman, regarding discharge plans. Pt and her grandmother denied having any concerns about the patient discharging from [facility] today. They stated that they plan on going straight from [facility] to [facility] ED where they will meet with "my sickle cell doctor." Pt stated that she is actively engaged in the Sickle Cell community and receives social support through this community. She is willing to follow up with a recommendation to attend IOP and accepted an inake appointment with IOP for at 9:30am. Case was reviewed with Blane Hughes LPC. Pt denied SI/HI/AH/ VH. Pt or her grandmother will contact the [facility] in the event that she is admitted to [facility] and will be unable to attend the intake tomorrow. This handbook writer also attempted to reach Boo Fuller LCSW at [facility], who pt signed a SAMMI for and identified as her addiction social worker in the Adult Sickle Cell Program. This handbook writer was unable to reach Barbara Fuller or leave a vm.
--- NOTE | 2017-02-21 15:24 | CP SOUTH PROGRESS NOTE PSYCH ---
Psych (Inpt) Progress Note Progress Note Include the following elements, when applicable: Involvement in the active treatment of the patient with behavioral observations of the patient and the patient's response to the treatment. Review of the ongoing treatment process in the context of the treatment plan. Indication of how multi-disciplinary staff members are carrying out the treatment plan. Plans for future interventions and recommendations for revision of the treatment plan. Liaison with other physicians/providers. Progress Note: Case and treatment plan discussed in team meeting. Staff reports that the patient isolates. Does not attend groups. Her only focus is on pain. Family meeting was scheduled for 11 AM with grandmother. Patient seen at 10:46 AM with medical social consultant, Marie. The patient is using a wheelchair to get around. Feels okay. Reports she continues to have pain everywhere, worst in her legs. Rates pain about 9/10. Affect is calm and depressed. Reports mood is okay. Rates sad mood and anxiety both 0/10. Denies feeling hopeless, helpless, worthless or guilty. Denies active and passive suicidal ideation. Denies homicidal ideation. Denies auditory and visual hallucinations and paranoid ideation. Reports sleep and appetite are okay. Energy: reports she feels a little sleepy and states she does not know why. Appears awake and alert. Patient does not want an antidepressant. Plans to live with her grandparents after discharge. States her intent behind sending suicidal texts to her mother was only to get her mother's attention. IMPRESSION: Condition improved. Okay for discharge today to grandparents. Dr. Nguyen spoke with outpatient physician, Dr. Stevan Mercado, yesterday and Dr. Mercado recommended that the patient be brought by family to [facility] emergency room so that the patient can be admitted to [facility] for pain control. Patient has been given a [facility] IOP intake for tomorrow in the event that she is not hospitalized.
--- NOTE | 2017-02-21 16:49 | DISCHARGE SUMMARY REPORT-PSYCH ---
Visit Information Visit Dates/Diagnosis' Admission Date: 02/17/17 Discharge Date: 02/21/17 Reason for Admission: Suicidal text message. Psy Discharge Primary Diag: Unspecified depression Psy Discharge Secondary Diag: Sickle cell anemia Pain from sickle cell an. Hypokalemia (resolved) Hx gallstones Hospital Course Significant Lab Findings: Potassium was low at 3.3 but normalized to 4.6 with repletion. Total protein high at 8.4. TSH normal. RBC low at 4.12, HgB low at 11.9, HCT low at 36.2. Urine negative. Urine drug screen + for opiates/morphine and cannabis. Course Complications: Patient frequently complained of pain related to her sickle cell disease. Opiates were managed by the hospitalist service. Consultations: Patient was seen by Dr. Mora for admission H&P. Please see Dr. Mora's note for additional information. Patient was also seen by Dr. Sabillon and Dr. Nguyen about pain management. Dr. Nguyen was in contact with the patient's outpatient physician, Dr. Stevan Mercado, who advised that upon discharge, family bring the patient to [facility] ER so that patient can be evaluated for a medical admission to [facility] for pain management. Allergies: Coded Allergies: NO KNOWN ALLERGIES (04/29/16) Hospital Course/TX Response: The patient was monitored on the unit for safety and mood disorder. She did not participate in groups. Reported significant pain and tended to isolate in bed. Pain was addressed with oral opiates. Patient refused offer for anti-depressant medication. Progress note from date of discharge, 02/21/17: Case and treatment plan discussed in team meeting. Staff reports that the patient isolates. Does not attend groups. Her only focus is on pain. Family meeting was scheduled for 11 AM with grandmother. Patient seen at 10:46 AM with nephrology social worker, Marie. The patient is using a wheelchair to get around. Feels okay. Reports she continues to have pain everywhere, worst in her legs. Rates pain about 9/10. Affect is calm and depressed. Reports mood is okay. Rates sad mood and anxiety both 0/10. Denies feeling hopeless, helpless, worthless or guilty. Denies active and passive suicidal ideation. Denies homicidal ideation. Denies auditory and visual hallucinations and paranoid ideation. Reports sleep and appetite are okay. Energy: reports she feels a little sleepy and states she does not know why. Appears awake and alert. Patient does not want an antidepressant. Plans to live with her grandparents after discharge. States her intent behind sending suicidal texts to her mother was only to get her mother's attention. IMPRESSION: Condition improved. Okay for discharge today to grandparents. Dr. Nguyen spoke with outpatient physician, Dr. Stevan Mercado, yesterday and Dr. Mercado recommended that the patient be brought by family to [facility] emergency room so that the patient can be admitted to [facility] for pain control. Patient has been given a [facility] IOP intake for tomorrow in the event that she is not hospitalized. Discharge HBIPS - Tobacco Use Treatment Offered Post DC Medications Offered: Not Applicable Post DC Tobacco Treatment Plan: Not Applicable - EtOH/Drug Use D/O Treatment Offered Post DC Medications Offered: NA-No EtOH/Drug Use D/O Post DC EtOH/SubAbuse TX Plan: NA-No EtOH/Drug Use D/O Metabolic Screening - Screen if on a Neuroleptic Medication - Metabolic screening should include: - Blood Pressure, BMI, Glucose or Hgb A1c, & a - Lipid profile from within the past 365 days. Metabolic Screening ([x]) Not Applicable, patient not on a neuroleptic. OR () Patient on a neuroleptic(s) . Enter below results for Glucose or Hemoglobin A1C, and lipid panel if obtained during the last 365 days. BMI: 28.800 Blood Pressure: 135/76 Laboratory Results (If applicable): Discharge Instructions General Discharge Information Discharge Medications: Discharge Medications- (Dose, route, freq, indication): CONTINUE taking these Home Medications: Diphenhydramine HCl Dose: ORAL, EVERY 6 HOURS (Diphenhydramine HCl) 50 1 Capsule NEEDED as needed for MG CAPSULE ITCHING Ondansetron HCl Dose: ORAL, Q6H as needed for (Ondansetron HCl) 8 MG 1 Tablet N/V TABLET Ibuprofen (Ibuprofen) Dose: ORAL, Q6H as needed for 600 MG TABLET 1 Tablet PAIN With food Lactulose (Kristalose) Dose: ORAL, DAILY NEEDED 20 GRAM PACKET 1 PACKET for CONSTIPATION REPEAT NEEDEDE Morphine Sulfate Dose: ORAL, Q3H as needed for (Morphine Sulfate) 15 MG 1-3 Tablet PAIN TABLET Patient is on medical marijuana on an outpatient basis. Multiple Neuroleptics: ([x]) Not Applicable OR Document below three failed attempts at monotherapy, or a plan to taper to monotherapy, or augmentation of Clozapine. () Patient's Diet: Regular. Patient's Activity: No restrictions. DC Disposition: Patient was planning to go to [facility] to pursue a medical admission there for pain control. Patient will be living with grandparents. Recommendations: Per Dr. Stevan Mercado' advice, please present to the [facility] ER for evaluation of sickle cell disease/pain. Please see PCP to review borderline EKG (copy provided to patient upon discharge ). Referred To: [facility] IOP with intake 02/22/17 at 9:30 a.m. Copies To: RED MURRAY LPC
== END 2017-02-21 12:30 | DRG 754 ==
LOC: ERH 21:57 → CP SOUTH 02-17 15:24 → ERHI 02-17 15:24 → ENTRNSPT 02-17 19:02 → CMPTRNSPT 02-17 19:25 → CP SOUTH 02-17 19:32 → ENRESERV 02-17 23:59 → CP SOUTH 02-20 08:18
PROVIDERS: Physician Assistant Medical; Psychiatry & Neurology Psychiatry; ADMIT Psychiatry & Neurology Psychiatry
DX: F32.9 Major depressive disorder, single episode, unspecified (principal); D57.1 Sickle-cell disease without crisis; G89.29 Other chronic pain; E87.6 Hypokalemia
CPT/HCPCS: 36415; 80307; 81025; 82436; 93005; 93010; 96361; 96374; 96375; G0463; G0480; J1200; J1642; J2405; J3101

== ENCOUNTER 2018-05-03 14:39 | Emergency (ER) | payer OTHER ==
[~2018-05-03] VITALS: Ht 152.4 cm; Wt 73.9 kg
[2018-05-03 16:34] LABS: HEMATOCRIT 36.9 % (37-47); MEAN CORPUSCULAR HGB 28.9 PG (27.0-31.0); MEAN CORPUSCULAR HGB CONC 33.8 G/DL (33.0-37.0); MEAN CORPUSCULAR VOLUME 85.5 FL (81.0-99.0); MEAN PLATELET VOLUME 8.5 FL (7.4-10.4); PLATELET COUNT 427 /CUMM (130-400); RBC DISTRIBUTION WIDTH 15.6 % (11.5-14.5); RED BLOOD CELL CT 4.32 /CUMM (4.20-5.40); WHITE BLOOD CELL COUNT 9.4 /CUMM (4.8-10.8)
--- NOTE | 2018-05-03 21:50 | RADIOLOGY REPORT ---
EXAMINATION: XR ABDOMEN WITH PA CHEST CLINICAL INDICATION: Abdominal pain. Nausea and vomiting. COMPARISON: None TECHNIQUE: Chest with abdomen upright and supine views. FINDINGS: CHEST: Both lungs are fairly well-expanded and clear of acute process. The heart size and the pulmonary vascularity is normal. A left subclavian port is noted with its tip in the mid SVC. ABDOMEN: The bowel gas pattern is nonspecific. There are no air-fluid levels or free air seen. There is no organomegaly. No gross bony abnormality. IMPRESSION: Unremarkable chest. Unremarkable abdomen exam.
--- NOTE | 2018-05-03 22:20 | ED GI/GU/ABDOMINAL COMPLAINT ---
History of Present Illness General Chief Complaint: General Adult Stated Complaint: PT BEEN VOMITING CAN'T HOLD ANTHING DOWN Source: patient, family, old records, Epic Exam Limitations: no limitations Vital Signs & Intake/Output Vital Signs & Intake/Output Vital Signs Date Time Temp Pulse Resp B/P B/P Pulse O2 O2 Flow FiO2 Mean Ox Delivery Rate 05/03 2121 98.7 85 20 144/76 98 Room Air 05/03 1926 98.6 91 20 130/85 98 Room Air 05/03 1442 98.3 103 18 135/99 96 Room Air Allergies Coded Allergies: hydromorphone (From DILAUDID) (ITCHYNESS 04/08/18) Reconcile Medications Diphenhydramine HCl 50 MG CAPSULE 1 CAP PO Q6-PRN PRN ITCHING (Reported) Ibuprofen 600 MG TABLET 1 TAB PO Q6H PRN PAIN (Reported) With food Lactulose (Kristalose) 20 GRAM PACKET 1 PACKET PO DAILY NEEDED CONSTIPATION (Reported) REPEAT NEEDEDE Morphine Sulfate 15 MG TABLET 1-3 TAB PO Q3H PRN PAIN (Reported) Ondansetron HCl 8 MG TABLET 1 TAB PO Q6H PRN N/V (Reported) Triage Note: 23 Y/O FEMALE C/O N/V/D SINCE MONDAY. ALSO C/O "ALL OVER BODY PAIN". HX SICKLE CELL AND STATES SHE IS IN A CRISIS FROM DEHYDRATION. PT HAS PORT FOR ACCESS AND STATES SHE TAKES MORPHINE DUE TO ALLERGY TO DILAUDID. AFEBRILE. DENIES URINARY SYMPTOMS Triage Nurses Notes Reviewed? yes LMP (ages 10-50): unknown ? n Is pt currently ? No Onset: Last week Duration: day(s):, constant, continues in ED Timing: recent history Quality/Severity: aching, cramping, moderate, severe Location: generalized abdomen Radiation: no radiation Activities at Onset: rest Prior Abdominal Problems: similar symptoms Past Sexual History: Unobtainable at this time Modifying Factors: Worsens With: eating. Associated Symptoms: abdominal pain, loss of appetite, nausea/vomiting HPI: 6 days prior to admission patient complains of nausea vomiting anorexia generalized abdominal discomfort that has caused generalized body aches. 2 days prior to admission she was evaluated at [facility] and discharged home. Review of her care plan an impact demonstrates that she has manipulative behavior to obtain opiate analgesia. Without specific pathology fever laboratory abnormalities no opiates are to be prescribed. She denies fever chills chest pain cough shortness of breath headache dysuria rash bleeding. Past History Travel History Traveled to [place] past 21 day No Medical History Any Pertinent Medical History? 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 No Review of Systems Review of Systems Constitutional: Reports: see HPI, malaise. EENTM: Reports: no symptoms. Respiratory: Reports: no symptoms. Cardiovascular: Reports: no symptoms. GI: Reports: see HPI, abdominal pain, nausea, vomiting. Genitourinary: Reports: no symptoms. Musculoskeletal: Reports: see HPI, joint pain, muscle pain. Skin: Reports: no symptoms. Neurological/Psychological: Reports: no symptoms. Hematologic/Endocrine: Reports: no symptoms. Immunologic/Allergic: Reports: no symptoms. All Other Systems: Reviewed and Negative Physical Exam Physical Exam General Appearance: well developed/nourished, alert, awake, anxious, comfortable Head: atraumatic, normal appearance Eyes: Bilateral: normal appearance, PERRL, EOMI. Ears, Nose, Throat, Mouth: hearing grossly normal, moist mucous membrane Neck: normal inspection, supple, full range of motion, normal alignment Respiratory: normal breath sounds, chest non-tender, no respiratory distress, quiet respiration, lungs clear Cardiovascular: regular rate/rhythm, normal peripheral pulses, norml femoral pulses equa Peripheral Pulses: 4+ carotid (R), 4+ carotid (L) Gastrointestinal: normal bowel sounds, soft, non-tender, no organomegaly Back: normal inspection, normal range of motion Extremities: normal range of motion, no ligament instability Neurologic/Psych: no motor/sensory deficits, awake, alert, oriented x 3, normal gait, normal mood/affect, online services manager II-XII nml as tested Skin: intact, normal color, warm/dry Core Measures ACS in differential dx? No Sepsis Present: No Sepsis Focused Exam Completed? No Progress Differential Diagnosis: biliary colic, gastritis, pancreatitis Plan of Care: Orders Procedure Date/time Status URINE 05/03 144 Complete URINALYSIS 05/03 144 Complete LIPASE 05/03 144 Complete COMPREHENSIVE METABOLIC PANEL 05/03 1445 Complete CBC WITHOUT DIFFERENTIAL 05/03 1445 Complete Laboratory Tests 05/03/18 1915: Urine Color YEL, Urine Clarity HAZY H, Urine pH 7.0, Ur Specific [place] 1.015, Urine Protein NEG, Urine Ketones NEG, Urine Nitrite NEG, Urine Bilirubin NEG, Urine Urobilinogen 1.0, Ur Leukocyte Esterase TRACE H, Ur Microscopic SEDIMENT EXAMINED, Urine WBC 1-3 H, Ur Epithelial Cells MANY H, Urine Bacteria MANY H, Urine Mucus MANY H, Urine Hemoglobin NEG, Urine Glucose NEG, Urine Test NEGATIVE 05/03/18 1600: Anion Gap 12, Estimated GFR > 60, BUN/Creatinine Ratio 7.1, Glucose 72, Calcium 10.1, Total Bilirubin 1.6 H, AST 16, ALT 21, Alkaline Phosphatase 61, Total Protein 9.1 H, Albumin 5.1 H, Globulin 4.0, Albumin/Globulin Ratio 1.3, Lipase 124, CBC w Diff MAN DIFF ORDERED, RBC 4.32, MCV 85.5, MCH 28.9, MCHC 33.8, RDW 15.6 H, MPV 8.5, Segmented Neutrophils 59, Lymphocytes 33, Monocytes 7, Eosinophils 1, Platelet Estimate INCREASED, Anisocytosis 1+, Target Cells FEW, Fld Total RBCs Counted 100 Diagnostic Imaging: Viewed by Me: Radiology Read. Discussed w/RAD: Radiology Read. Radiology Impression: Unremarkable chest. Unremarkable abdomen exam. Initial ED EKG: none Departure Departure Disposition: HOME OR SELF CARE Condition: Stable Clinical Impression Primary Impression: Nausea & vomiting Referrals: Thomsa ORANTES,Murtaza Johnson (PCP/Family) Rogelio ORANTES,Gualberto Arevalo Departure Forms: Customer Survey General Discharge Information
[2018-05-03] MEDS ORDERED: ZOFRAN8 M1 PO (22:51)
[2018-05-03 22:59] VITALS: BP 122/87
== END 2018-05-03 23:00 ==
LOC: ERH 14:39
PROVIDERS: Physician Assistant Medical
DX: R11.2 Nausea with vomiting, unspecified (principal); F32.9 Major depressive disorder, single episode, unspecified; D57.1 Sickle-cell disease without crisis
CPT/HCPCS: 74022; 81001; 81025; 96374; 96375; J0131; J2550